=== PATIENT | male | born 1940 | race Caucasian/White ===

== ENCOUNTER → 2020-05-31 | Outpatient (CLI) | payer MEDICARE ==
[2020-05-31 08:35] LABS: HEMOGLOBIN 13.7 gm/dl (14.0-17.5); RED BLOOD COUNT 4.48 M/UL (4.20-5.50); WHITE BLOOD COUNT 9.8 K/UL (4.5-11.0)
== END ==
LOC: LAB 07:52
PROVIDERS: Physician Assistant
DX: N18.4 Chronic kidney disease, stage 4 (severe) (principal)
CPT/HCPCS: 36415; 80069; 83970; 84550; 85027

== ENCOUNTER → 2020-06-02 | Outpatient (CLI) | payer MEDICARE | LOC: LAB 07:38 | PROVIDERS: Urology | DX: C61 Malignant neoplasm of prostate (principal); K59.00 Constipation, unspecified | CPT/HCPCS: 36415; 74018; 80053; 84153 ==

== ENCOUNTER → 2020-07-01 | Outpatient (CLI) | payer MEDICARE | LOC: LAB 08:49 | PROVIDERS: Internal Medicine | DX: E03.9 Hypothyroidism, unspecified (principal); E78.5 Hyperlipidemia, unspecified | CPT/HCPCS: 36415; 80053; 80061; 84439; 84443 ==

== ENCOUNTER → 2020-11-25 | Outpatient (CLI) | payer MEDICARE | LOC: LAB 07:35 | PROVIDERS: Physician Assistant; Urology | DX: N18.4 Chronic kidney disease, stage 4 (severe) (principal); C61 Malignant neoplasm of prostate | CPT/HCPCS: 36415; 74018; 80053; 80069; 82570; 83970; 84153; 84156 ==

== ENCOUNTER → 2021-01-15 | Outpatient (CLI) | payer MEDICARE | LOC: LAB 07:53 | PROVIDERS: Urology | DX: N19 Unspecified kidney failure (principal) | CPT/HCPCS: 36415; 80053 ==

== ENCOUNTER → 2021-02-23 | Outpatient (CLI) | payer MEDICARE | LOC: LAB 08:40 | PROVIDERS: Physician Assistant | DX: N18.4 Chronic kidney disease, stage 4 (severe) (principal) | CPT/HCPCS: 36415; 80069; 84550 ==

== ENCOUNTER → 2021-05-19 | Outpatient (CLI) | payer MEDICARE | LOC: LAB 08:44 | PROVIDERS: Urology | DX: N30.20 Other chronic cystitis without hematuria (principal); N19 Unspecified kidney failure; N41.0 Acute prostatitis; R14.0 Abdominal distension (gaseous); R19.5 Other fecal abnormalities | CPT/HCPCS: 36415; 74018; 80053; 84153; 87086 ==

== ENCOUNTER → 2021-06-30 | Outpatient (CLI) | payer MEDICARE | LOC: LAB 08:14 | PROVIDERS: Internal Medicine | DX: E03.9 Hypothyroidism, unspecified (principal) | CPT/HCPCS: 36415; 80053; 80061; 84439; 84443 ==

== ENCOUNTER 2021-08-24 13:40 | Emergency (ER) | payer MEDICARE ==
[2021-08-24] MEDS ORDERED: HYDROCODON-ACE1 EAC4 PO (15:59)
== END 2021-08-24 16:20 | disposition home or self-care (01) ==
LOC: ER1 13:40
DX: S22.41XA Multiple fractures of ribs, right side, initial encounter for closed fracture (principal); S80.812A Abrasion, left lower leg, initial encounter; F17.210 Nicotine dependence, cigarettes, uncomplicated; I10 Essential (primary) hypertension; E78.5 Hyperlipidemia, unspecified; W01.0XXA Fall on same level from slipping, tripping and stumbling without subsequent striking against object, initial encounter; Y92.009 Unspecified place in unspecified non-institutional (private) residence as the place of occurrence of the external cause
CPT/HCPCS: 71100; 90471; 90715; 99283

== ENCOUNTER → 2021-12-18 | Outpatient (CLI) | payer MEDICARE ==
[~2021-12-18] MED LIST: HYDROCODON-ACE1 EAC4 PO
[2021-12-18 09:54] LABS: HEMOGLOBIN 13.2 gm/dl (14.0-17.5); RED BLOOD COUNT 4.34 M/UL (4.20-5.50); WHITE BLOOD COUNT 10.1 K/UL (4.5-11.0)
== END ==
LOC: LAB 09:21
PROVIDERS: Physician Assistant; Urology
DX: N18.4 Chronic kidney disease, stage 4 (severe) (principal); N30.20 Other chronic cystitis without hematuria; N40.1 Benign prostatic hyperplasia with lower urinary tract symptoms
CPT/HCPCS: 36415; 74018; 80053; 80069; 83970; 84153; 84550; 85027; 87077; 87086; 87186